=== PATIENT | female | born 1945 | race Caucasian/White ===

== ENCOUNTER → 2017-02-27 | Outpatient (CLI) | payer MEDICARE ==
--- NOTE | 2017-02-27 14:15 | RAD ---
Chest radiograph 02/27/2017 at 1354 hours Indication: Cough for several months Impression: None available Technique: PA and lateral views of the chest are provided. Findings:. The cardiomediastinal silhouette is within normal limits. There are no pleural effusions. No pulmonary vascular congestion. No pneumothorax. There is increased hazy density in the left suprahilar region. Osseous structures appear normal. Impression: Hazy opacity in the left suprahilar region may represent an infiltrate in the appropriate clinical setting. Recommend 6-8 week follow-up chest radiograph to ensure resolution.
--- NOTE | 2017-02-27 17:47 | RAD ---
DATE: 02/27/2017 EXAM: DIGITAL SCREEN BILAT W/CAD HISTORY: Family history of malignancy. Screening mammogram. COMPARISON: 11/11/2015 This study was interpreted with the benefit of Computerized Aided Detection (CAD). The breast parenchyma shows scattered fibroglandular densities. Breast parenchyma level B. FINDINGS: Right: There is a 12 mm partially circumscribed mass in the right breast at mid calf along the posterior nipple line on CC views and likely in the superior breast on MLO views. No suspicious microcalcifications are identified. No architectural distortion. Left: No suspicious microcalcifications, masses or architectural distortion. IMPRESSION: 1. Incomplete right mammogram. Additional views are recommended for further evaluation of a mass in the superior right breast at mid depth. Additional views to include spot compression CC and MLO views as well as possible ultrasound. 2. Normal left mammogram. BI-RADS CATEGORY: 0 INCOMPLETE: NEEDS ADDITIONAL IMAGING EVALUATION AND/OR PRIOR MAMMOGRAMS FOR COMPARISON. RECOMMENDED FOLLOW-UP: ADD ADDITIONAL IMAGING PQRS compliance statement: Patient information was entered into a reminder system with a target due date for the next mammogram. Mammography is a sensitive method for finding small breast cancers, but it does not detect them all and is not a substitute for careful clinical examination. A negative mammogram does not negate a clinically suspicious finding and should not result in delay in biopsying a clinically suspicious abnormality. "Our facility is accredited by the [employer] Mammography Program."
== END | disposition home or self-care (01) ==
LOC: MAMMO 13:43
PROVIDERS: ATTEND Family Medicine
DX: Z12.31 Encounter for screening mammogram for malignant neoplasm of breast (principal); R05 Cough
CPT/HCPCS: 71020; G0202; 77067